=== PATIENT | male | born 1945 | race Caucasian/White ===

== ENCOUNTER 2018-06-04 16:43 | Emergency (ER) | payer MEDICARE, OTHER ==
[2018-06-04] MEDS ORDERED: Diphtheria,Pertussis(Acell),Tetanus Vaccine 0.5 ML SDV IM ONE (17:29)
--- NOTE | 2018-06-04 17:51 | EDM.PDOC ---
ED HPI GENERAL MEDICAL PROBLEM - General Chief Complaint: Upper Extremity Injury/Pain Stated Complaint: L RING FINGER LAC/INJURY Time Seen by Provider: 06/04/18 17:29 - History of Present Illness INITIAL COMMENTS - FREE TEXT/NARRATIVE: Patient is 73-year-old male presented today to the emergency department for evaluation of left ring finger injury happened just prior to arrival and was department today. He stated that he was working in his garage he accidentally cut the tip of the left ring finger where he was profusely bleeding and was able to partially control bleeding by direct pressure to the injury site. He was able to move his left ring finger as well as has sensation to the tip of the finger. He denies any previous injury or trauma to the similar finger. He denies any pain at this time. He denies any numbness or weakness, swelling, to the left ring finger. He was unable to recall his last dose of tetanus vaccination. He denies any other concern at this time. Left Hand Pain Score (Numeric/FACES): 1 - Related Data Allergies Allergy/AdvReac Type Severity Reaction Status Date / Time No Known Allergies Allergy Verified 06/04/18 16:59 Home Meds: Home Meds atorvaSTATin Calcium [Lipitor] 40 mg PO DAILY 06/04/18 [History] cephALEXin [Keflex] 500 mg PO Q8H 5 Days #15 cap 06/04/18 [Rx] Past Medical History - Past Health History Medical/Surgical History: Denies Medical/Surgical History HEENT History: Reports: Hard of Hearing, Impaired Vision Musculoskeletal History: Reports: Arthritis Oncologic (Cancer) History: Reports: Basal Cell Carcinoma - Past Surgical History HEENT Surgical History: Reports: Adenoidectomy, Oral Surgery, Tonsillectomy Social & Family History - Family History Family Medical History: Noncontributory Endocrine/Metabolic: Reports: Diabetes, type II - Tobacco Use Years of Tobacco use: 40 Packs/Tins Daily: 0.2 - Caffeine Use Caffeine Use: Reports: Coffee - Recreational Drug Use Recreational Drug Use: No Review of Systems - Review of Systems Review Of Systems: ROS reveals no pertinent complaints other than HPI. ED EXAM, GENERAL - Physical Exam Exam: See Below Exam Limited By: No Limitations General Appearance: Alert, WD/WN, No Apparent Distress Respiratory/Chest: No Respiratory Distress, Lungs Clear Cardiovascular: Normal Peripheral Pulses, Regular Rate, Rhythm Extremities: Normal Inspection, Normal Range of Motion, Normal Capillary Refill , Other (There is a partial Avulsion of the skin to the tip of the ring finger on the left hand noted. Refer to procedure note.) Neurological: Alert, Oriented, No Motor/Sensory Deficits Psychiatric: Normal Affect, Normal Mood Skin Exam: Warm, Dry ED TRAUMA EXTREMITY PROCEDURES - Additional/Other Procedure(s) Other (Free Text) Procedure(s): Left Ring finger: There is a partial skin avulsion noted at the tip of the finger, which is moderately bleeding. Able to control bleeding by applied silver nitrate sticks and non-adherent dressing. Patient tolerated procedure well. Postprocedure no complication noted. Patient is able to move his left ring finger without any pain or discomfort. Neurovascularly intact postprocedure. Course - Vital Signs Last Recorded V/S: Last Vital Signs Temp 37.0 C 06/04/18 17:03 Pulse 72 06/04/18 17:03 Resp 16 06/04/18 17:03 BP 151/91 H 06/04/18 17:03 Pulse Ox 100 06/04/18 17:03 - Orders/Labs/Meds Orders: Active Orders 24 hr Category Date Time Status Vaccines to be Administered [RC] PER UNIT ROUTINE Care 06/04/18 17:29 Active Meds: Medications Discontinued Medications Generic Name Dose Route Start Last Admin Trade Name [place] PRN Reason Stop Dose Admin Diphtheria/Tetanus/Acell Pertussis 0.5 ml 06/04/18 17:29 06/04/18 17:39 Adacel IM 06/04/18 17:30 0.5 ml .ONCE ONE Administration Departure - Departure Time of Disposition: 17:49 Disposition: Home, Self-Care 01 Condition: Good Clinical Impression: Avulsion, finger tip Qualifiers: Encounter type: initial encounter Qualified Code(s): S61.209A - Unspecified open wound of unspecified finger without damage to nail, initial encounter - Discharge Information Prescriptions: cephALEXin [Keflex] 500 mg PO Q8H 5 Days #15 cap Instructions: Wound Care, Adult Referrals: PCP,None [Primary Care Provider] - Riley Cross MD [Physician] - 1 Week (Please call orthopedic surgery in 5- 7 days for further evaluation of left ring finger) Forms: ED Department Discharge Additional Instructions: Patient has been advised to keep the injury site dry and intact. - My Orders Last 24 Hours: My Active Orders 06/04/18 17:29 Vaccines to be Administered [RC] PER UNIT ROUTINE - Assessment/Plan Last 24 Hours: My Active Orders 06/04/18 17:29 Vaccines to be Administered [RC] PER UNIT ROUTINE
== END 2018-06-04 18:04 | disposition home or self-care (01) ==
LOC: JD.ED 16:43
DX: S61.205A Unspecified open wound of left ring finger without damage to nail, initial encounter (principal); Z23 Encounter for immunization; W45.8XXA Other foreign body or object entering through skin, initial encounter; Y92.59 Other trade areas as the place of occurrence of the external cause
CPT/HCPCS: 90471; 90715; 99283; 99283-25

== ENCOUNTER 2021-02-18 14:42 | Emergency (ER) | payer MEDICARE, OTHER ==
[2021-02-18] MEDS ORDERED: Sodium Chloride 0.9% 10 ML Syringe FLUSH PRN (15:12)
[2021-02-18] MEDS ORDERED: Sodium Chloride 0.9% 1,000 ML IV SCH (15:15)
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
== END 2021-02-18 16:28 | disposition home or self-care (01) ==
LOC: JD.ED 14:42
DX: S51.811A Laceration without foreign body of right forearm, initial encounter (principal); E86.0 Dehydration; R06.09 Other forms of dyspnea; E78.00 Pure hypercholesterolemia, unspecified; Z79.899 Other long term (current) drug therapy; Z72.0 Tobacco use; W01.0XXA Fall on same level from slipping, tripping and stumbling without subsequent striking against object, initial encounter; W26.8XXA Contact with other sharp object(s), not elsewhere classified, initial encounter
CPT/HCPCS: 36415; 80053; 85025; 99284; J7030

== ENCOUNTER 2022-03-31 09:41 | Emergency (ER) | payer MEDICARE, OTHER ==
[2022-03-31] MEDS ORDERED: Dextrose 5%-Lactated Ringers 1,000 ML IV SCH (10:30)
[2022-03-31] MEDS ORDERED: Diphtheria,Pertussis(Acell),Tetanus Vaccine 0.5 ML Syringe IM ONE (10:41)
[2022-03-31 11:04] LABS: ESTIMATED GFR 51 mL/min (>60)
[2022-03-31] MEDS ORDERED: Sodium Chloride 0.9% 10 ML Syringe FLUSH ONE (11:40)
[2022-03-31] MEDS ORDERED: Iopamidol 755 Mg/ML 100 ML Bottle IVPUSH ONE (11:40)
[2022-03-31] MEDS ORDERED: Sodium Chloride 0.9% 100 ML IV SCH (11:45)
== END 2022-03-31 13:35 | disposition home or self-care (01) ==
LOC: JD.ED 09:41
DX: R55 Syncope and collapse (principal); S30.810A Abrasion of lower back and pelvis, initial encounter; Z23 Encounter for immunization; Z79.82 Long term (current) use of aspirin; W18.30XA Fall on same level, unspecified, initial encounter
CPT/HCPCS: 36415; 71045; 71275; 80053; 82553; 83735; 83880; 84484; 85025; 85379; 86140; 90471; 90715; 93005; 96360; 96361; 99284; J7121; Q9967

== ENCOUNTER 2023-04-29 09:33 | Day surgery (SDC) | payer MEDICARE ==
[~2023-04-29 09:33] MED LIST: Acetaminophen 325 MG Tab PO SCH; Lactated Ringers 1,000 ML IV SCH; Morphine 8 MG, EPINEPHrine 0.3 MG, Cefuroxime 750 MG, Ketorolac 30 MG, Sodium Chloride ... PRN; Pregabalin 25 MG Cap PO SCH; Ropivacaine 0.5% 5 MG/ML 30 ML SDV ONE; Sodium Chloride 0.9% 10 ML Syringe FLUSH PRN; Sodium Chloride 0.9% 10 ML Syringe FLUSH SCH; oxyCODONE ER 10 MG TAB.ER PO SCH
[2023-04-29] MEDS ORDERED: Lidocaine 2% 100 MG/5 ML Syringe ONE (09:52)
[2023-04-29] MEDS ORDERED: Propofol 200 MG/20 ML SDV ONE (09:52)
[2023-04-29] MEDS ORDERED: Vancomycin 1 GM SDV ONE (10:50)
[2023-04-29] MEDS ORDERED: Tranexamic Acid 1,000 MG/10 ML Vial ONE (10:50)
[2023-04-29] MEDS ORDERED: ceFAZolin 2 GM Vial ONE (11:21)
[2023-04-29] MEDS ORDERED: Phenylephrine 1% 10 MG/ML SDV ONE (12:03)
[2023-04-29] MEDS ORDERED: fentaNYL 100 MCG/2 ML SDV ONE (12:04)
[2023-04-29] MEDS ORDERED: Lactated Ringers 1,000 ML IV ONE (12:30)
[2023-04-29] MEDS ORDERED: Lidocaine 2% 11 ML Jelly Filled Syringe ONE (12:50)
[2023-04-29] MEDS ORDERED: Acetaminophen/HYDROcodone 325-5 MG Tab PO ONE (13:57)
== END 2023-04-29 16:35 | disposition home or self-care (01) ==
LOC: JD.SDS 09:33
PROVIDERS: ATTEND Orthopaedic Surgery
DX: S72.434A Nondisplaced fracture of medial condyle of right femur, initial encounter for closed fracture (principal); M17.11 Unilateral primary osteoarthritis, right knee; I25.10 Atherosclerotic heart disease of native coronary artery without angina pectoris; I25.84 Coronary atherosclerosis due to calcified coronary lesion; I35.0 Nonrheumatic aortic (valve) stenosis; M85.861 Other specified disorders of bone density and structure, right lower leg; H91.90 Unspecified hearing loss, unspecified ear; I10 Essential (primary) hypertension; N40.1 Benign prostatic hyperplasia with lower urinary tract symptoms; J44.9 Chronic obstructive pulmonary disease, unspecified; Z20.822 Contact with and (suspected) exposure to COVID-19; Z90.49 Acquired absence of other specified parts of digestive tract; Z90.89 Acquired absence of other organs; F17.200 Nicotine dependence, unspecified, uncomplicated; Z79.899 Other long term (current) drug therapy
CPT/HCPCS: 0555T; 27447; 27514; 64447; 73560; 97110; 97116; 97161; A9270; C1713; C1776; J0171; J0690; J0697; J1885; J2270; J2370; J2704; J2795; J3010; J3370; J7030; J7120; 01402; 99100; J3490

== ENCOUNTER 2024-03-27 19:07 | Emergency (ER) | payer MEDICARE, OTHER ==
[2024-03-27 19:44] LABS: BASOPHILS PERCENT AUTO 0.6 % (0.0-1.0); EOSINOPHILS PERCENT AUTO 0.3 % (0.0-6.0); HEMATOCRIT 37.7 % (42.0-52.0); HEMOGLOBIN 13.1 gm/dl (14.0-18.0); IMMATURE GRAN ABSOLUTE AUTO 0.02 K/mm3 (0.00-0.05); IMMATURE GRAN PERCENT AUTO 0.3 % (0.0-0.4); LYMPHOCYTES ABSOLUTE AUTO 2.4 K/mm3 (1.0-4.8); LYMPHOCYTES PERCENT AUTO 37.1 % (24.0-44.0); MEAN CORPUSCULAR HEMOGLOBIN 33.8 pg (28.0-32.0); MEAN CORPUSCULAR HGB CONC 34.7 g/dl (32.0-36.0); MEAN CORPUSCULAR VOLUME 97.2 fl (83.0-99.0); MEAN PLATELET VOLUME 9.3 fl (9.4-12.4); MONOCYTES ABSOLUTE AUTO 1.1 K/mm3 (0.0-0.8); MONOCYTES PERCENT AUTO 17.2 % (0.0-8.0); NEUTROPHILS ABSOLUTE AUTO 2.9 K/mm3 (1.8-7.7); NEUTROPHILS PERCENT AUTO 44.5 % (41.0-71.0); PLATELET COUNT,PLT 200 K/mm3 (150-400); RED BLOOD CELL COUNT 3.88 M/mm3 (4.52-5.90)
[2024-03-27 20:06] LABS: A/G RATIO 1.1 (1-2); ALBUMIN 3.8 g/dl (3.4-5.0); ANION GAP 14.2 (5-15); BILIRUBIN TOTAL 0.4 mg/dL (0.2-1.0); BUN/CREATININE RATIO 7.1 (14-18); CALCIUM 8.4 mg/dL (8.5-10.1); CREATININE 1.4 mg/dL (0.7-1.3); EST CRCL DRUG DOSING (CG) 38.68 mL/min; ETHANOL BLOOD MEDICAL 0.23 gm% (0.00); MAGNESIUM 1.9 mg/dL (1.8-2.4); POTASSIUM,K 4.2 mEq/L (3.5-5.1); PROTEIN TOTAL,TP 7.4 g/dl (6.4-8.2)
[2024-03-27 20:33] LABS: APPEARANCE,URINE CLEAR (Clear); BILIRUBIN,URINE NEGATIVE (Negative); COLOR,URINE YELLOW (Yellow); GLUCOSE,URINE NEGATIVE (Negative); KETONES,URINE NEGATIVE (Negative); LEUKOCYTE ESTERASE,URINE NEGATIVE (Negative); NITRITE,URINE NEGATIVE (Negative); OCCULT BLOOD,URINE 2+ (Negative); PROTEIN,URINE 1+ (Negative)
[2024-03-27 20:49] LABS: BACTERIA,URINE FEW /hpf (FEW); EPITHELIAL CELLS,URINE NOT SEEN /hpf (0-5); MUCUS,URINE NOT SEEN /hpf (FEW); RBC,URINE 0-5 /hpf (0-5); WBC,URINE 0-5 /hpf (0-5)
== END 2024-03-27 21:25 | disposition home or self-care (01) ==
LOC: JD.ED 19:07
DX: R29.810 Facial weakness (principal); F10.129 Alcohol abuse with intoxication, unspecified; E78.00 Pure hypercholesterolemia, unspecified; Z79.899 Other long term (current) drug therapy
CPT/HCPCS: 36415; 70450; 70450-26; 80053; 80307; 81001; 82947; 83735; 85025; 93005; 99285